=== PATIENT | male | born 1950 | race African-American/Black ===

== ENCOUNTER 2016-06-19 11:36 | Outpatient (CLI) | payer OTHER ==
[2012-12-31 20:26] VITALS: BMI 31.3
--- NOTE | 2016-06-19 12:46 | DI ---
EXAM: Six views of the cervical spine HISTORY: Cervical spinal stenosis, disc disorder with radiculopathy, disc displacement COMPARISON: 02/18/2009 FINDINGS: The C7 vertebral body is suboptimally visualized on the lateral views but appears normal in height. The C1-C6 vertebral bodies are normal in height. There is straightening of the normal cervical wade dosis. There is moderate disc height loss at C4-C5 and mild disc height loss at the other levels. M ultiple bridging anterior osteophytes are present. Evaluation for foraminal stenosis is limited on t he right due to suboptimal patient positioning. Foraminal stenosis is seen on the left at C4-C5 sec ondary to uncovertebral hypertrophy. No abnormal prevertebral soft tissue swelling is seen. Remote left rib fractures are noted. IMPRESSION: Straightening of the normal cervical lordosis. Multilevel degenerative disc disease, up to moderate at C4-C5.
--- NOTE | 2016-06-19 13:19 | DI ---
EXAM: Five views of the lumbar spine HISTORY: Lumbar degeneration of disc, facet joint arthropathy COMPARISON: None available FINDINGS: There are five lumbar-type vertebrae. The lumbar vertebral bodies are normal in height. No listhes is is seen. Moderate to severe disc height loss is seen at L4-L5 with posterior osteophyte formation . There is a prominent left lateral bridging osteophyte of L4-L5. Multiple other smaller lateral os teophytes are seen at other levels. There is mild disc height loss at T12-L1, L1-L2, L3-L4 and L4-L5 . Moderate multilevel facet arthropathy is present. Operative changes of L4-L5 laminectomy are see n. Cholecystectomy surgical clips are noted. IMPRESSION: No acute osseous abnormality. Multilevel degenerative disc disease, up to moderate to severe at L4-L5. Moderate multilevel facet arthropathy. Status post L4-L5 laminectomy.
== END 2016-06-19 11:37 | disposition home or self-care (01) ==
LOC: RAD 11:36
PROVIDERS: ATTEND Pain Medicine Interventional Pain Medicine
DX: M50.223 Other cervical disc displacement at C6-C7 level (principal); M50.122 Cervical disc disorder at C5-C6 level with radiculopathy; M50.81 Other cervical disc disorders, high cervical region; M50.83 Other cervical disc disorders, cervicothoracic region; M47.816 Spondylosis without myelopathy or radiculopathy, lumbar region; M47.817 Spondylosis without myelopathy or radiculopathy, lumbosacral region; M48.02 Spinal stenosis, cervical region; M96.1 Postlaminectomy syndrome, not elsewhere classified; M51.36 Other intervertebral disc degeneration, lumbar region; M51.37 Other intervertebral disc degeneration, lumbosacral region

== ENCOUNTER 2017-01-14 09:37 | Outpatient (CLI) ==
[2012-12-31 20:26] VITALS: BMI 31.3
[2017-01-14 09:58] LABS: BASOPHILS # (AUTO) 0.1 K/uL (0-0.2); BASOPHILS % (AUTO) 0.9 % (0.0-3.0); EOSINOPHILS # (AUTO) 0.3 K/ul (0.0-0.7); EOSINOPHILS % (AUTO) 3.8 % (0.0-7.0); HEMOGLOBIN 14.6 g/dl (14.0-18.0); IMMATURE GRANULOCYTE % (AUTO) 0.5 % (0.0-5.0); LYMPHOCYTES # (AUTO) 2.6 K/uL (0.60-3.4); MEAN CORPUSCULAR HEMOGLOBIN 26.6 pg (27.0-31.0); MEAN CORPUSCULAR HGB CONC 33.2 (31.8-35.4); MEAN CORPUSCULAR VOLUME 80.3 fl (80.0-94.0); MONOCYTES # (AUTO) 0.9 K/uL (0.4-2.0); MONOCYTES % (AUTO) 11.2 (0-10); NEUTROPHILS # (AUTO) 4.3 K/ul (2.0-6.9); NEUTROPHILS % (AUTO) 51.6; PLATELET COUNT 245 10^3/uL (140-440); RED BLOOD COUNT 5.48 10^6/ul (4.70-6.10); WHITE BLOOD COUNT 8.23 K/ul (4.2-10.2)
[2017-01-14 10:40] LABS: ALBUMIN 3.1 g/dL (3.4-5.0); ALBUMIN/GLOBULIN RATIO 0.74; ANION GAP 10.8; BILIRUBIN,TOTAL 0.51 mg/dL (0.00-1.20); BUN/CREATININE RATIO 10.67; CALCIUM 9.2 mg/dL (8.2-10.2); CHOL/HDL RATIO 4.2 (4.5-6.4); CREATININE 1.03 mg/dL (0.60-1.10); POTASSIUM 3.8 mmol/L (3.5-5.1); TOTAL PROTEIN 7.3 g/dL (5.8-8.1)
== END 2017-01-14 09:38 | disposition home or self-care (01) ==
LOC: LAB 09:37
PROVIDERS: ATTEND Emergency Medicine
DX: R73.9 Hyperglycemia, unspecified (principal); M47.26 Other spondylosis with radiculopathy, lumbar region; E34.9 Endocrine disorder, unspecified; M06.09 Rheumatoid arthritis without rheumatoid factor, multiple sites; E66.9 Obesity, unspecified; E03.9 Hypothyroidism, unspecified
CPT/HCPCS: 36415; 80053; 80061; 83036; 84443; 85025

== ENCOUNTER 2018-01-09 18:50 | Outpatient (CLI) ==
[2012-12-31 20:26] VITALS: BMI 31.3
== END 2018-01-09 18:51 | disposition home or self-care (01) ==
LOC: LAB 18:50
PROVIDERS: ATTEND Nurse Practitioner Family
DX: E03.9 Hypothyroidism, unspecified (principal); I10 Essential (primary) hypertension
CPT/HCPCS: 36415; 80053; 84443; 85025

== ENCOUNTER 2018-03-31 10:16 | Emergency (ER) ==
[2018-03-31 10:22] VITALS: BP 151/89; TEMP 98.9; BMI 31.6
--- NOTE | 2018-03-31 11:16 | CT ---
EXAM: CT THORAX HISTORY: Cough. TECHNIQUE: CT thorax without intravenous contrast. Multiplanar images presented. COMPARISON: None FINDINGS: Normal heart size. No pericardial effusion. Thoracic aorta is unremarkable. There is a nonspecific 7 mm (short axis) lymph node in the lower left mediastinal fat just above the hemidiaphragm, nonspec ific. There is mild interstitial thickening and subtle consolidation in the medial left lower lobe/lung bas e which although could be fibrotic in nature could also indicate mild pneumonia. There is no pleural fluid or vascular congestion. No pneumothorax. Bones appear demineralized. There is ankylosis of the thoracic spine. There is mild bilateral gynec omastia. IMPRESSION: Cannot exclude subtle left lower lobe pneumonia.
--- NOTE | 2018-03-31 11:31 | ED.PDOC ---
General ED Provider: Dr. RAVIN SHELTON Chief Complaint: Respiratory Complaint Stated Complaint: cough Time Seen by Physician: 10:30 Mode of Arrival: Walk-In Information Source: Patient Exam Limitations: No limitations Primary Care Provider: KYLEE LUNA Nursing and Triage Documentation Reviewed and Agree: Yes Does patient meet sepsis criteria?: No System Inflammatory Response Syndrome: Not Applicable Sepsis Protocol: For patient's 13 years and over: Temp is 96.8 and below OR 101 and greater Pulse >90 BPM Resp >20/minute Acutely Altered Mental Status Are patient's symptoms suggestive of a new infection, such as: -Pneumonia -Skin, Soft Tissue -Endocarditis -UTI -Bone, Joint Infection -Implantable Device -Acute Abdominal Infection -Wound Infection -Meningitis -Blood Stream Catheter Infection -Unknown Respiratory Complaint Exam - Respiratory Complaint/Exam Onset/Duration: 2 days Symptoms Are: Still present Timing: Intermittent Initial Severity: Mild Current Severity: None Location: Nose, Throat, Chest Character: Reports: Non-productive cough Aggravating: Reports: URI Associated Signs and Symptoms: Reports: URI, Nasal congestion. Denies: Rapid breathing, Dyspnea, Fever, Chills, Chest pain, Pleuritic chest pain, Wheezing, Hemoptysis, Dizziness, Calf pain, Calf swelling, Edema, Hoarseness, Sinus discomfort, Vomiting, Sore throat, Weight loss, Decreased oral intake, Increased thirst, Increased appetite, Increased urination Related History: Reports: Similar episode History of Healthcare-Acquired Pneumonia: No Related Surgical History: Reports: None Pulmonary Embolism Risk Factors: None Review of Systems - Review Of Systems Constitutional: Reports: Malaise Eyes: Reports: No symptoms Ears, Nose, Mouth, Throat: Reports: No symptoms Respiratory: Reports: Cough Cardiac: Reports: No symptoms GI: Reports: No symptoms : Reports: No symptoms Musculoskeletal: Reports: No symptoms Skin: Reports: No symptoms Neurological: Reports: No symptoms Endocrine: Reports: No symptoms Hematologic/Lymphatic: Reports: No symptoms All Other Systems: Reviewed and Negative Past Medical History - Past Medical History Previously Healthy: Yes Endocrine: Reports: Hypothyroid Cardiovascular: Reports: Hypertension Respiratory: Reports: None Hematological: Reports: None Gastrointestinal: Reports: None Genitourinary: Reports: None Neuro/Psych: Reports: None Musculoskeletal: Reports: None Cancer: Reports: None - Surgical History General Surgical History: Reports: None - Family History Family History: Reports: None - Social History Smoking Status: Never smoker Hx Substance Use: Yes (alcohol) Alcohol Screening: None Physical Exam - Physical Exam Appearance: Well-appearing, No pain distress, Well-nourished Eyes: PURNIMA, EOMI, Conjunctiva clear ENT: Ears normal, Nose normal, Oropharynx normal Respiratory: Rhonchi Cardiovascular: RRR, Pulses normal, No rub, No murmur GI/: Soft, Nontender, No masses, Bowel sounds normal, No Organomegaly Musculoskeletal: Normal strength, ROM intact, No edema, No calf tenderness Skin: Warm, Dry, Normal color Neurological: Sensation intact, Motor intact, Reflexes intact, Cranial nerves intact, Alert, Oriented Psychiatric: Affect appropriate, Mood appropriate Interpretation - Radiology Interpretation Radiology Interpretation By: Radiologist Radiology Results: No acute changes Critical Care Note - Critical Care Note Total Time (mins): 0 Course - Course Hematology/Chemistry: 03/31/18 10:40 03/31/18 10:40 Orders, Labs, Meds: Lab Review 03/31/18 03/31/18 03/31/18 10:40 10:40 10:45 WBC 7.73 RBC 5.87 Hgb 15.6 Hct 47.5 MCV 80.9 MCH 26.6 L MCHC 32.8 RDW Coeff of [place] 13.8 Plt Count 190 Immature Gran % (Auto) 0.4 Neut % (Auto) 72.5 Lymph % (Auto) 12.2 Ida % (Auto) 11.6 H Eos % (Auto) 2.7 Baso % (Auto) 0.6 Immature Gran # (Auto) 0.0 Neut # (Auto) 5.6 Lymph # (Auto) 0.9 Ida # (Auto) 0.9 Eos # (Auto) 0.2 Baso # (Auto) 0.1 Sodium 134.6 Potassium 3.71 Chloride 102.4 Carbon Dioxide 26.3 Anion Gap 9.61 BUN 10.0 Creatinine 0.90 Estimated GFR (MDRD) 103.00 BUN/Creatinine Ratio 11.11 Glucose 122.4 H Calcium 8.66 Total Bilirubin 0.86 AST 22.8 ALT 18.8 Alkaline Phosphatase 61.7 Total Protein 7.92 Albumin 4.02 Globulin 3.90 Albumin/Globulin Ratio 1.03 Influ A Molecular Assay Negative by naat Influ B Molecular Assay Negative by naat Orders Category Date Time Status CBC W/ AUTO DIFF Stat LAB 12/24/18 10:40 Completed COMPREHENSIVE METABOLIC PANEL Stat LAB 03/31/18 10:40 Completed FLU A/B MOLECULAR Stat LAB 03/31/18 10:45 Completed MOLECULAR GROUP A STREP Stat LAB 03/31/18 10:[address] CHEST W/O CONTRAST Stat RADS 03/31/18 10:34 Completed Vital Signs: Temp Pulse Resp BP Pulse Ox 03/31/18 10:17 98.9 F 71 20 151/89 H 96 Departure - Departure Time of Disposition: 11:30 Disposition: HOME SELF-CARE Discharge Problem: Viral syndrome Instructions: Viral Syndrome (ED) Condition: Good Pt referred to PMD for follow-up: Yes IPMP verified?: No Additional Instructions: Please call your Family Physician as soon as possible to schedule a follow-up appointment. Allergies/Adverse Reactions: Allergies No Known Allergies Allergy (Verified 03/31/18 10:22) Home Medications: Ambulatory Orders Adalimumab [Humira] 1 mg SQ DIRECTED 12/31/12 Hydrocodone/Acetaminophen [Lortab 7.5-500 Tablet] 1 tab PO TID 12/31/12 Amoxicillin 500 mg PO Q8HR #21 tablet 03/31/18
== END 2018-03-31 11:35 | disposition home or self-care (01) ==
LOC: ED 10:16
DX: B34.9 Viral infection, unspecified (principal); I10 Essential (primary) hypertension; E03.9 Hypothyroidism, unspecified
CPT/HCPCS: 36415; 80053; 85025; 87502; 87651; 99283

== ENCOUNTER 2018-05-07 14:26 | Outpatient (CLI) | payer OTHER | END 2018-05-07 14:27 | disposition home or self-care (01) | LOC: LAB 14:26 | PROVIDERS: ATTEND Nurse Practitioner Family | DX: E03.9 Hypothyroidism, unspecified (principal); R79.89 Other specified abnormal findings of blood chemistry | CPT/HCPCS: 36415; 84403; 84443 ==